=== PATIENT | male | born 2000 | race Caucasian/White ===

== ENCOUNTER 2023-08-29 09:36 | Emergency (ER) | payer OTHER, SELFPAY ==
[2023-08-29 09:39] VITALS: BP 130/89
--- NOTE | 2023-08-29 09:55 | ED.GENMED ---
History of Present Illness
General
Chief Complaint: Crisis Evaluation
Source: patient and ambulance crew
Time Seen by Provider: 08/29/23 09:55
Travel History
Have you had any contact with someone who has COVID-19?: No
Do you have any symptoms of coronavirus? Fever > 100 degrees, chills, cough, shortness of breath, sore throat, loss of taste or smell, muscle aches, or headache?: No
History of Present Illness
History of Present Illness:
23-year-old male with past medical history of TBI at , anxiety and depression presenting to the emergency department from home after he was at work and was having some trouble with coworkers. Patient got very upset and went into the back room
and proceeded to brace his left wrist with a box maker. Patient states he was not trying to kill himself but was just very upset in the moment. He does admit to having thoughts of harming himself though about 1-2 times per week. Patient noted to
triage that he felt a lightheaded however this appears improved at present time. Patient has no other physical complaints. Vaccinations are up-to-date.
Past History
Past History
ED Past Medical History: Psychiatric, Other (L testicle varicolcele) and Other (TBI at , ADHD, anxiety)
ED Past Surgical History: Other
Social History
Tobacco: Non-smoker
Alcohol: None
Drug: None
Personal: Single
Living: with family
Employment: Employed ([employer])
Family History
Family History: Other
Review of Systems
Review of Systems
All Other Systems: ROS reviewed and negative except as documented in HPI and ROS
Phy Exam
Physical Exam
Physical Exam:
GENERAL: Alert , in no apparent distress
EYE: conjunctiva clear
Head: Normocephalic atraumatic
NECK: Supple,
ENT: mmm.
LUNGS: no acute respiratory distress
NEUROLOGICAL: Alert and oriented
SKIN: Warm and dry, 2 very superficial abrasions to the left volar wrist
MUSCULOSKELETAL: well perfused.
PSYCH: Normal and appropriate interaction.
Scores
Heart Failure Risk
Heart Failure Risk Score: Not Applicable
Heart Score for Chest Pain Patients
STEMI patient?: Not applicable
Withdrawal Assessment of Alcohol
Withdrawal Assessment Completed?: Not applicable
Course
Vital Signs
Initial and Last Documented VS:
Initial Vital Signs
Temp Pulse Resp BP Pulse Ox
98.0 F 89 16 130/89 98
08/29/23 09:39 08/29/23 09:39 08/29/23 09:39 08/29/23 09:39 08/29/23 09:39
Last Documented Vital Signs
Temp Pulse Resp BP Pulse Ox
98.0 F 89 16 130/89 98
08/29/23 09:39 08/29/23 09:39 08/29/23 09:39 08/29/23 09:39 08/29/23 09:39
MDM/Problems Addressed
Differential Diagnosis Includes:
Adjustment disorder, depression, superficial wounds
MDM/Problems Addressed:
23-year-old male presenting emergency department for evaluation of 2 small wounds to the left wrist sustained by cutting himself with a box maker earlier this morning. Wounds are very superficial without any active bleeding. No indication for
emergency apartment care but patient will be dispositioned to [facility] for patient.
Chronic conditions affecting care: Psychiatric illness (Depression/anxiety)
Acute Exacerbation and/or Progression of Chronic Illness: Psychiatric illness (Depression/anxiety)
*Pulse Oximetry
Patient hypoxic: no
*Critical Care Note
Total Time (30-74mins, 75-104mins- exclusive of procedures): Not Applicable
ED Attending Note
-
Portions of this chart may have been created with voice recognition software.� Occasional wrong word or��sound alike� substitutions may have occurred due to the inherent limitations of voice recognition software.
Discharge Plan
Departure
Patient Disposition: [facility]
Date of Disposition: 08/29/23
Time of Disposition: 09:55
Discharge Problem:
Adjustment disorder with depressed mood
Prescriptions:
No Action
doxycycline hyclate 100 mg capsule
100 mg PO BID 21 Days Qty: 42 0RF
Interventions
Interventions:
*ED COVID-19 Vaccine History Last Done: 08/29/23 09:39
Discharge Date and Time
Print Language: AMHARIC
== END 2023-08-29 10:58 ==
LOC: EMR 09:36
PROVIDERS: EMERGENCY PHYSICIAN Student in an Organized Health Care Education/Training Program
DX: F43.21 Adjustment disorder with depressed mood (principal); Z87.820 Personal history of traumatic brain injury
CPT/HCPCS: 99283

== ENCOUNTER 2024-03-04 00:19 | Emergency (ER) | payer OTHER, SELFPAY ==
[2024-03-04 00:19] VITALS: BMI 24.0
[2024-03-04 00:29] VITALS: BP 128/73
--- NOTE | 2024-03-04 02:04 | ED.GENMED ---
History of Present Illness
<ANGÉLICA Farah - Last Filed: 03/04/24 03:31>
General
Chief Complaint: Fever
Source: patient and family
Time Seen by Provider: 03/04/24 01:57
Nursing documentation reviewed up to this point in time: agreed with
History of Present Illness
History of Present Illness:
Pt is a 23 yo M who presents with his mother to the emergency department for fever. Mother states that the patient had tooth pain on Saturday, saw emergency dentist and was started on amoxicillin on Saturday. Mother states that the patient then had
a root canal yesterday. Pt states that the fever started around 10/11pm last night. Mother states the Tmax was 101.2F. Mother states that the patient has been switching between taking Tylenol and Motrin. Pt states that he currently does not have any
mouth pain. Pt admits to chills. Pt denies discharge from the mouth, headache, neck pain or limited ROM, N/V, abdominal pain.
Past History
<ANGÉLICA Farah - Last Filed: 03/04/24 03:31>
Past History
ED Past Medical History: Psychiatric, Other (L testicle varicolcele) and Other (TBI at , ADHD, anxiety)
ED Past Surgical History: Other
Social History
Tobacco: Non-smoker
Alcohol: None
Drug: None
Personal: Single
Living: with family
Employment: Employed ([employer])
Family History
Family History: Other
Review of Systems
<ANGÉLICA Farah - Last Filed: 03/04/24 03:31>
Review of Systems
Allergies reviewed?: Yes
Constitutional: Reports fever and chills
EENT: Reports no symptoms
Respiratory: Reports no symptoms
Cardiac: Reports no symptoms
ABD/GI: Reports no symptoms
Neurological: Reports no symptoms
Phy Exam
<Jo[facility] - Last Filed: 03/04/24 03:31>
General Physical Exam
General Presentation: no apparent distress
General age: appears stated age
General Skin: warm
General Habitus: normal
General Mental: alert
General Hydration: appears well hydrated
ENT Exam
ENT Exam: pharynx normal and swallowing well
Cardiovascular Exam
Cardiovascular Exam: regular rate/rhythm
Pulmonary Exam
Pulmonary Exam: lungs clear
Course
<Jojo Franz [facility] - Last Filed: 03/04/24 03:31>
Orders/Labs/Results
Orders:
Orders
03/04/24 03:45
CBC/With Diff [Complete Blood Count/With Diff] Urgent
03/04/24 04:21
Comprehensive Metabolic Panel Urgent
Comment: REDRAW
03/04/24 04:33
Ketorolac [Toradol] 15 mg .ROUTE .STK-MED ONE
03/04/24 04:34
Ketorolac [Toradol] 15 mg IV NOW STA
Abnormal Lab Results
03/04/24 03/04/24
03:45 04:21
WBC 4.6 L 10^3/uL
(4.8-10.8)
RBC 4.36 L 10^6/uL
(4.70-6.10)
Hgb 12.7 L g/dL
(13.0-18.0)
Hct 38.4 L %
(39.0-52.0)
MPV 11.6 H fL
(7.4-10.4)
Absolute Monos (auto) 0.7 H 10^3/uL
(0.1-0.6)
Monocytes % 16.0 H %
(1.7-9.3)
Glucose 104 H mg/dl
(70-99)
Total Protein 5.7 L g/dl
(6.3-8.2)
03/04/24 03:45
03/04/24 04:21
Vital Signs
Initial and Last Documented VS:
Initial Vital Signs
Temp Pulse Resp BP Pulse Ox
100.2 F 108 18 128/73 99
03/04/24 00:29 03/04/24 00:29 03/04/24 00:29 03/04/24 00:29 03/04/24 00:29
Last Documented Vital Signs
Temp Pulse Resp BP Pulse Ox
99.3 F 83 18 107/56 98
03/04/24 02:41 03/04/24 02:41 03/04/24 02:41 03/04/24 02:41 03/04/24 02:41
<Ciro Mabry, - Last Filed: 03/04/24 05:58>
Orders/Labs/Results
Orders:
Orders
03/04/24 03:45
CBC/With Diff [Complete Blood Count/With Diff] Urgent
03/04/24 04:21
Comprehensive Metabolic Panel Urgent
Comment: REDRAW
03/04/24 04:33
Ketorolac [Toradol] 15 mg .ROUTE .STK-MED ONE
03/04/24 04:34
Ketorolac [Toradol] 15 mg IV NOW STA
Abnormal Lab Results
03/04/24 03/04/24
03:45 04:21
WBC 4.6 L 10^3/uL
(4.8-10.8)
RBC 4.36 L 10^6/uL
(4.70-6.10)
Hgb 12.7 L g/dL
(13.0-18.0)
Hct 38.4 L %
(39.0-52.0)
MPV 11.6 H fL
(7.4-10.4)
Absolute Monos (auto) 0.7 H 10^3/uL
(0.1-0.6)
Monocytes % 16.0 H %
(1.7-9.3)
Glucose 104 H mg/dl
(70-99)
Total Protein 5.7 L g/dl
(6.3-8.2)
03/04/24 03:45
03/04/24 04:21
Vital Signs
Initial and Last Documented VS:
Initial Vital Signs
Temp Pulse Resp BP Pulse Ox
100.2 F 108 18 128/73 99
03/04/24 00:29 03/04/24 00:29 03/04/24 00:29 03/04/24 00:29 03/04/24 00:29
Last Documented Vital Signs
Temp Pulse Resp BP Pulse Ox
99.3 F 83 18 107/56 98
03/04/24 02:41 03/04/24 02:41 03/04/24 02:41 03/04/24 02:41 03/04/24 02:41
<ANGÉLICA Farah - Last Filed: 03/04/24 03:31>
*Critical Care Note
Total Time (30-74mins, 75-104mins- exclusive of procedures): Not Applicable
ED Attending Note
<ANGÉLICA Farah - Last Filed: 03/04/24 03:31>
-
Portions of this chart may have been created with voice recognition software.� Occasional wrong word or��sound alike� substitutions may have occurred due to the inherent limitations of voice recognition software.
<Ciro Mabry DO - Last Filed: 03/04/24 05:58>
ED Attending Note
Patient seen and examined by attending physician: Yes
I performed the substantive portion of visit, reviewed & personally made and approve the management plan that is documented in note by myself or SHAHNAZ.: Yes
ED Attending Note:
Pleasant 23-year-old male presents to the emergency department after 2 emergency dental visits for tooth pain. He states that he had low-grade fever and increased pain. He has been started on amoxicillin he took 2 days of that. He did not take
any antipyretics tonight but states that he has been alternating Tylenol and Motrin. patient states that after arrival to the emergency department, his mouth pain has resolved. Patient denies any oral discharge or bad taste in his mouth. Patient
and mom are concerned because patient has had many x-rays and several CAT scans in the past. They are worried about the cumulative effects of radiation. They initially settled on waiting for the lab work to return. After we tomy lab work, patient
resting comfortably in his bed. He states that he felt much better when we awakened him with the results. He stated that he did not want to get a CT scan at this time. Mom is in agreement
Discharge Plan
Departure
Patient Disposition: Home (Routine Discharge)
Date of Disposition: 03/04/24
Time of Disposition: 05:53
Patient with high blood pressure during this ER visit?: No
Discharge Problem:
Pain, dental
Instructions: Fever, Adult (DC), Dental Pain ED, BLOOD PRESSURE
Prescriptions:
New
diclofenac sodium 75 mg tablet,delayed release (DR/EC)
75 mg PO BID Qty: 10 0RF
No Action
doxycycline hyclate 100 mg capsule
100 mg PO BID 21 Days Qty: 42 0RF
Referrals:
Constantin Shah MD [Family Provider] -
Activity Restrictions/Additional Instructions:
Please continue to take your amoxicillin as prescribed by your dentist. Follow-up with dentist or return to the ER with any changing or worsening of symptoms.
It was a pleasure meeting you and taking part in your care. We hope for your continued healing and wellness.
Please read discharge instructions in their entirety. However, they are for general education and may not describe your exact diagnosis at discharge. Information on your ER visit and medical conditions were discussed with you along with appropriate
follow up information...
If indicated, please take your medications as instructed and indicated on discharge paperwork.
Please schedule a follow up appointment as directed. Call to schedule an appointment
Please return to the emergency department with ANY change in, persisting, or worsening of symptoms. If any of your symptoms do not improve, or persist, or become more severe within 6-12 hours, please return to the emergency department for further
care.
Please return to the emergency department if you develop a headache, neck pain/stiffness, fever greater than 100.4F, chest pain, shortness of breath, persistent nausea, vomiting, slurred speech, difficulty walking, numbness/tingling, weakness, signs
of infection or any other symptoms that are worrisome to you.
If you have any questions or concerns please do not hesitate to call the Hospital at or E-mail me directly at [email or web address]
Interventions
Interventions:
*Risk Screen - Suicide Last Done: 03/04/24 00:29
*General Assessment Last Done: 03/04/24 00:29
*Neglect/Abuse Screening Last Done: 03/04/24 02:42
*ED COVID-19 Vaccine History Last Done: 03/04/24 00:29
ED- Neurological Assessment Last Done: 03/04/24 02:42
ED-Skin Assessment Last Done: 03/04/24 02:42
Discharge Date and Time
Print Language: IVORIAN
[2024-03-04 02:41] VITALS: BP 107/56
[2024-03-04 03:57] LABS: % Basophils 0.2 % (0-2); % Eosinophils 1.3 % (0-6); % Immature Granulocytes 0.4 % (0-0.5); % Lymphocytes 25.1 % (20.5-51.1); Absolute Eosinophils 0.1 10^3/uL (0-0.7); Absolute Lymphocytes 1.2 10^3/uL (1.2-3.4); Absolute Monocytes 0.7 10^3/uL (0.1-0.6); Absolute Neutrophils 2.6 10^3/uL (1.4-6.5); Hematocrit 38.4 % (39.0-52.0); Hemoglobin 12.7 g/dL (13.0-18.0); Mean Corp Hgb Conc. 33.1 g/dL (33.0-37.0); Mean Corpuscular Hgb 29.1 pg (27.0-31.0); Mean Corpuscular Volume 88.1 fL (80.0-94.0); Mean Platelet Volume 11.6 fL (7.4-10.4); Nucleated Red Blood Cells % 0 % (-); Platelet Count 131 10^3/uL (130-400); Red Blood Cell Count 4.36 10^6/uL (4.70-6.10); Red Cell Dist. Width 11.7 % (11.5-14.5); White Blood Cell Count 4.6 10^3/uL (4.8-10.8)
[2024-03-04] MEDS: TORADOL 15 MG IV (04:34)
[2024-03-04 04:40] LABS: ALT (SGPT) 12 U/L (0-50); AST (SGOT) 21 U/L (17-59); Albumin 3.7 g/dl (3.5-5.0); Alkaline Phosphatase 47 U/L (38-126); Blood Urea Nitrogen 16 mg/dl (9-20); Calcium 9.1 mg/dl (8.4-10.2); Carbon Dioxide 24 mmol/L (22-30); Chloride 106 mmol/L (98-107); Estimated Creatinine Clearance 117 ml/min; Glucose 104 mg/dl (70-99); Potassium 3.9 mmol/L (3.5-5.1); Sodium 140 mmol/L (135-145); Total Bilirubin 0.5 mg/dl (0.2-1.3); Total Protein 5.7 g/dl (6.3-8.2); eGFR > 60.00
[2024-03-04 05:30] VITALS: BP 110/62
== END 2024-03-04 06:08 | disposition home or self-care (01) ==
LOC: EMR 00:19
PROVIDERS: EMERGENCY PHYSICIAN Student in an Organized Health Care Education/Training Program; FAMILY PHYSICIAN Internal Medicine
DX: K08.89 Other specified disorders of teeth and supporting structures (principal); R50.9 Fever, unspecified
CPT/HCPCS: 96374; 99284; 80053; 85025

== ENCOUNTER → 2024-03-06 11:05 | Outpatient (REF) | payer OTHER, SELFPAY | LOC: HWRAD 11:05 | PROVIDERS: ATTENDING PHYSICIAN Surgery; FAMILY PHYSICIAN Internal Medicine | DX: I86.1 Scrotal varices (principal) | CPT/HCPCS: 76870; 93976 ==

== ENCOUNTER 2024-04-15 20:56 | Emergency (ER) | payer OTHER, SELFPAY ==
[2024-04-15 20:59] VITALS: BP 126/89
[2024-04-15] MEDS: MOTRIN 600 MG PO (23:08)
--- NOTE | 2024-04-15 23:22 | ED.GENMED ---
History of Present Illness
General
Chief Complaint: Crisis Evaluation
Source: patient, family (Mother who is at bedside) and ambulance crew (EMS report)
Time Seen by Provider: 04/15/24 22:13
History of Present Illness
History of Present Illness:
This is a 23-year-old male who has history of TBI at , history of anxiety/depression. History of self injury episodes generally occur when he is frustrated with history of banging his head most often with his fist and 1 prior episode of
self-inflicted injury/laceration to his left wrist August 2023. Voluntarily hospitalized at [facility] at that time and then completed a 2 to 3-month intensive outpatient program at [facility].
He does follow with a psychiatrist and does have a counselor but currently not enrolled in regular counseling sessions.
Recently began courses at 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
Enjoying all of his classes except for math. Admits to struggling with math class and tonnidhi became frustrated with his math homework and thus proceeded to punch his the right side of his head several times. Mom notes that patient became quite
upset, agitated and she had difficulty calming him down thus called 911.
He has had similar episodes in the past and in fact was evaluated here May 2022 with complaints of headache for few days which began after punching himself in the head due to frustration. CT of the head at that time was unremarkable.
Upon EMS arrival patient promptly calmed down and has remained calm and cooperative since EMS arrival.
He adamantly denies wanting to hurt himself, denies suicidal nor homicidal ideations. No hallucinations.
He does note moderate right frontal headache but denies loss of consciousness, no nausea or vomiting, no vision difficulty, no dizziness nor lightheadedness. No weakness nor numbness. No difficulty with ambulation.
He takes no anticoagulants.
Past History
Past History
ED Past Medical History: Psychiatric (Anxiety/depression, self injury), Other (L testicle varicolcele) and Other (TBI at , ADHD, anxiety)
ED Past Surgical History: Other
Social History
Tobacco: Non-smoker
Alcohol: None
Drug: None
Personal: Single
Living: with family
Employment: Student ([employer])
Family History
Family History: Other (Noncontributory)
Phy Exam
Physical Exam
Physical Exam:
GENERAL: 23-year-old male appears his stated age, awake and alert, pleasant, easily communicative. Maintains eye contact. In no acute distress. Mother is accompanying.
EYE: pupils equal and reactive. Extraocular muscles intact. Discs are sharp bilaterally. Anicteric
NECK: Supple, nontender, no meningismus, no significant adenopathy.
ENT: posterior pharynx is clear, oral mucosa is moist. TM clear b/l, nares patent.
CARDIAC: Regular rate and rhythm. no murmur.
LUNGS: Clear breath sounds bilaterally, no acute respiratory distress, no wheezes/rales/rhonchi
ABDOMEN: Soft, nondistended, without focal tenderness, no r/g, no cvat. normoactive BS.
NEUROLOGICAL: Alert and oriented x3, no focal neuro deficits. Gait is alfonso and steady.
SKIN: Warm and dry, normal color, skin intact. No rash.
MUSCULOSKELETAL: No C/C/E. peripheral pulses are full and equal b/l. No palpable tenderness.
PSYCH: Admits to self-inflicted head injury, striking his head with his fist. No loss of consciousness. Denies suicidal thoughts nor intention. Self injury brought on by frustration while attempting to complete math homework tonight. He remains
goal-directed, enjoying his college courses save for math class.
No history of alcohol nor drug use.
Similar sporadic episodes of self injury in the past.
Scores
Mcgrath Subarachnoid Hemorrhage
Age >/= 40: No
Neck Pain or Stiffness: No
Witnessed Loss of Consciousness: No
Onset During Exertion: No
Thunderclap Headache (instantly peaking pain): No
Limited Neck Flexion on Examination: No
Score: 0
Risk of Subarachnoid Hemorrhage: This patient can be ruled out for subarachnoid hemorrhage by the Mcgrath SAH Rule, which was 100% sensitive for SAH in its validation
PECARN >2 YEARS
GCS <15: No
Signs basilar skull fracture: No
LOC: No
Patient vomiting: No
Severe headache: No
Severe mechanism: No
If any criteria positive, consider head CT: No
Course
Orders/Labs/Results
Orders:
Orders
04/15/24 22:12
Crisis Consult Urgent
Reason for Consult: punching himself in head
04/15/24 23:03
Ibuprofen [Motrin] 600 mg PO NOW STA
Vital Signs
Initial and Last Documented VS:
Initial Vital Signs
Temp Pulse Resp BP Pulse Ox
98.2 F 91 20 126/89 98
04/15/24 20:59 04/15/24 20:59 04/15/24 20:59 04/15/24 20:59 04/15/24 20:59
Last Documented Vital Signs
Temp Pulse Resp BP Pulse Ox
98.2 F 91 20 126/89 98
04/15/24 20:59 04/15/24 20:59 04/15/24 20:59 04/15/24 20:59 04/15/24 20:59
MDM/Problems Addressed
Differential Diagnosis Includes:
Patient presents with headache after admittedly punching himself in the head several times out of frustration.
History of related TBI, anxiety/depression with history of similar somewhat impulsive self injury/head-banging. Overall episodes appear rare in occurrence.
Overall well in appearance, bright and alert, easily communicative. No focal neurodeficits.
No indication for CT of the head and rationale for this decision has been discussed at length with patient and mother.
He has been evaluated by Jesus de anda. Provided resources for outpatient follow-up. No indication for acute psychiatric hospitalization.
Will give a dose of ibuprofen for headache and patient admits to minimal oral intake today which may be adding to his headache as well as adding to his frustration/impulsive episode tonight.
Will provide a snack/turkey sandwich and continue to observe.
Encouraged prompt follow-up with psychiatrist as well as his already established counselor.
I have also recommended he touch base with health services at [employer] to inquire on campus counseling as well as on campus tutoring for his math class.
Chronic conditions affecting care: Psychiatric illness
Acute Exacerbation and/or Progression of Chronic Illness: Psychiatric illness
*Pulse Oximetry
Patient hypoxic: no
*Critical Care Note
Total Time (30-74mins, 75-104mins- exclusive of procedures): Not Applicable
Update Note
Update Note:
00:01
After dose of ibuprofen and consuming a box lunch patient feeling is markedly improved.
Headache has resolved.
He continues to have no focal neurodeficits.
Remains calm, easily communicative, goal directed.
Will discharge to home accompanied by his mother.
Outpatient follow-up/plan as above.
ED Attending Note
-
Portions of this chart may have been created with voice recognition software.� Occasional wrong word or��sound alike� substitutions may have occurred due to the inherent limitations of voice recognition software.
Discharge Plan
Departure
Patient Disposition: Home (Routine Discharge)
Date of Disposition: 04/16/24
Time of Disposition: 00:00
Patient with high blood pressure during this ER visit?: No
Condition: Good
Discharge Problem:
Nonsuicidal self-injury, Minor closed head injury, Adjustment disorder with emotional disturbance
Instructions: Self-Harm (DC), Adjustment disorder
Prescriptions:
No Action
doxycycline hyclate 100 mg capsule
100 mg PO BID 21 Days Qty: 42 0RF
diclofenac sodium 75 mg tablet,delayed release (DR/EC)
75 mg PO BID Qty: 10 0RF
Referrals:
NONE,* [Family Provider] -
Activity Restrictions/Additional Instructions:
Touch base with your psychiatrist as well as counselor.
I also recommend you get in touch with your guidance counselor at [employer] [facility], inquire initiation of on campus counseling as well as tutoring services for your math class.
Interventions
Interventions:
*Risk Screen - Suicide Last Done: 04/15/24 21:01
*General Assessment Last Done: 04/15/24 20:59
*Neglect/Abuse Screening Last Done: 04/15/24 21:01
ED- Fall Risk Assessment Last Done: 04/15/24 22:34
ED-Psychological Assessment Last Done: 04/15/24 22:33
Discharge Date and Time
Print Language: ARABIC
[2024-04-16 00:05] VITALS: BP 113/73
== END 2024-04-16 00:27 | disposition home or self-care (01) ==
LOC: EMR 20:56
PROVIDERS: EMERGENCY PHYSICIAN Emergency Medicine
DX: R45.88 Nonsuicidal self-harm (principal); S09.90XA Unspecified injury of head, initial encounter; F43.29 Adjustment disorder with other symptoms; X58.XXXA Exposure to other specified factors, initial encounter; F41.8 Other specified anxiety disorders; F90.9 Attention-deficit hyperactivity disorder, unspecified type; Z87.820 Personal history of traumatic brain injury; Z91.52 Personal history of nonsuicidal self-harm
CPT/HCPCS: 99282